=== PATIENT | male | born 1975 | race Two or more races ===

== ENCOUNTER 2024-10-07 07:10 | Emergency (ER) | payer BC, SELFPAY ==
[2024-10-07 07:23] VITALS: BP 118/76; PULSE 61; RESP 19; TEMP 37.6; O2SAT 97; BMI 26.0
--- NOTE | 2024-10-07 07:50 | XR_ITS ---
Examination: Hand, right 3 views Technique: Hand AP, oblique, lateral 3 views Date and time of exam: October 07, 2024, 0816 hrs. Indications: Basketball injury to the hand 2 days ago, hand pain Findings: Acute comminuted fractures involving the base of the first metacarpal with mild displacement of fracture fragments No gerry dislocation Impression: Acute comminuted fracture base proximal phalanx first digit
--- NOTE | 2024-10-07 08:34 | PD.EDHAND ---
Upper Extremity Injury RME/HPI General Chief Complaint: Hand/Wrist Problems Stated Complaint: Right hand swollen, right thumb Time Seen by Provider: 10/07/24 07:19 Source: patient Arrival date/time: 10/07/24 07:10 This is a 49-year-old male who presents to the emergency department with complaints of right thumb right hand pain status post injury. Patient reports that 3 days ago he was playing basketball and a ball hit his right thumb hyperflexing since then he has swelling to right thumb and mid hand. Denies any other injuries no other concerns today. Mode of arrival: ambulatory Limitations: no limitations Related Data Previous Rx's ?Medication ?Instructions ?Recorded hydrocortisone 2.5 % topical cream 1 applic VA QDAY PRN hemorrhoids 09/01/20 with perineal applicator #1 g (Anusol-HC) ibuprofen 800 mg tablet 800 mg PO TID PRN pain #30 tabs 09/21/23 ibuprofen 800 mg tablet (IBU) 800 mg PO Q8H #20 tabs 10/07/24 Allergies Allergy/AdvReac Type Severity Reaction Status Date / Time No Known Allergies Allergy Verified 10/07/24 07:14 Review of Systems Review of Systems Systems Reviewed: All systems reviewed, normal except as documented Narrative Review of Systems: Gen: No fever, no chills, no weight loss EYES: No discharge, no visual changes, no pain HEENT: No ear pain, no congestion, no sore throat PULM: No shortness of breath, no cough, no congestion CV: No chest pain, no dyspnea on exertion, no palpitations GI: No nausea, no vomiting, no diarrhea, no pain, no constipation : No frequency, no urgency, no dysuria Musc/skel: Right hand right thumb pain no back pain Skin: No rash Psyc: No hallucinations, no depression Heme/Lymph: No easy bleeding or bruising tendencies Neuro: No weakness, no headache ED Exam General Limitations: Present no limitations General appearance: Present alert and in no apparent distress Head Head exam: Present atraumatic Eye Eye exam: Present normal appearance, PERRL and EOMI ENT ENT exam: Present normal exam, normal oropharynx and mucous membranes moist Neck Neck exam: Present normal inspection, full ROM and trachea midline Chest Chest inspection: Present normal inspection and symmetric chest wall rise Respiratory Respiratory exam: Present normal lung sounds bilaterally Cardiovascular Cardiovascular exam: Present regular rate, normal rhythm and normal heart sounds Abdominal Exam Abdominal exam: Present soft and normal bowel sounds; Absent distention, tenderness, guarding or rebound Extremities Exam Extremities exam: Present full ROM Expanded Upper Extremity Exam Shoulder exam: Present normal inspection Arm exam: Present normal inspection Elbow exam: Present normal inspection Hand L/R front image:  1. other (+ Right first digit swelling moderate extending to mid hand. Positive pulses. CMS intact) Back Exam Back exam: Present normal inspection and full ROM Neurological Exam Neurological exam: Present alert, oriented X3 and CN II-XII intact Psychiatric Psychiatric exam: Present normal affect and normal mood Skin Skin exam: Present warm, dry, intact and normal color Course Quality Measures none Orders Category Date Time Status Splint / Immobilizer STAT Care 10/07/24 09:49 Completed XR hand comp RT min 3V Stat Exams 10/07/24 07:50 Completed Vital Signs Vital signs: Vital Signs Temperature 99.6 F 10/07/24 07:23 Pulse Rate 61 10/07/24 07:23 Respiratory Rate 19 10/07/24 07:23 Blood Pressure 118/76 10/07/24 07:23 Pulse Oximetry (%) 97 10/07/24 07:23 Oxygen Delivery Method Room Air 10/07/24 07:23 Extremity Injury MDM Narrative MDM Narrative:: The patient presents with an acute injury to the right/left thumb followingsports injury. Imaging confirms a comminuted fracture at the base of the proximal phalanx of the first digit. It is imperative that the patient follows up with PCP on Wednesday for urgent referral orthopedic/hand surgeon. Patient is aware and agrees with plan. Patient is placed in a thumb spica splint sling provided analgesia sent to pharmacy. Strict precautions given to return to emergency department for any worsening symptoms change in condition Patient data External records reviewed:: [facility] previous records Clinical information provided by:: patient Social determinants that could affect healthcare access:: none Patient has the following chronic illnesses:: None How is presenting disease/condition affected by chronic disease/condition?: no chronic disease Evaluation data The following diagnostics were reviewed and interpreted by me:: radiology exam(s) Lab and/or radiology exams considered but not ordered:: No Interpretation Summary: Examination: Hand, right 3 views Technique: Hand AP, oblique, lateral 3 views Date and time of exam: October 07, 2024, 0816 hrs. Indications: Basketball injury to the hand 2 days ago, hand pain Findings: Acute comminuted fractures involving the base of the first metacarpal with mild displacement of fracture fragments No gerry dislocation Impression: Acute comminuted fracture base proximal phalanx first digit Medications / Prescriptions Medications or Prescriptions considered but not ordered:: Pain medication Medication administrations:: No Consultations Consultation(s) initiated? (list below): No Diagnosis Upper Extremity Injury Differential Diagnosis: sprain and strain of wrist, fracture of wrist, finger sprain, dislocation of finger and fracture of hand Most likely diagnosis given after review of the tests above:: Possible sprain strain right thumb Admission Indicated Admission indicated?: not indicated Admission Request Was there a request for admission?: No Disposition Plan Disposition Plan: Discharge Discharge Attestation Discharge Attestation: The patient and all family members were given an opportunity to ask questions and understood the discharge instructions. Discharge instructions specifically effects, indications for sooner follow up or return to the emergency department, and the expected course of current diagnosis. Patient condition: Stable Discharge Plan Plan Patient Disposition: HOME (Self Care) Patient condition on transfer: Stable Prescriptions/Referrals Prescriptions/Med Rec: New ibuprofen [IBU] 800 mg tablet 800 mg PO Q8H Qty: 20 0RF No Action hydrocortisone [Anusol-HC] 2.5 % cream with perineal applicator 1 applic VA QDAY PRN (Reason: hemorrhoids) Qty: 1 0RF ibuprofen 800 mg tablet 800 mg PO TID PRN (Reason: pain) Qty: 30 0RF Referrals: No Primary/Family,Physician [Primary Care Provider] - In 1 week Problem List Clinical Impression: Fracture of phalanx of digit of hand Patient/Caregiver Discharge Instructions Discharge Activity: activity as tolerated Education Materials: ED Fracture, Finger, Closed Additional Instructions: You do have a fracture to your right thumb. Please wear the splint until you are evaluated by orthopedics. You will need a orthopedic referral. Keep arm elevated to decrease swelling. Return to the emergency department for any worsening symptoms and condition. Print Language: Portuguese Stand Alone Forms: Luz Award Info., Patient Portal Info Letter PA/SPORTS SPECIALIST Supervising Physician PA/SPORTS SPECIALIST Supervising Physician: Dr rosario
== END 2024-10-07 09:57 | disposition home or self-care (01) ==
PROVIDERS: Emergency Provider Family Medicine
DX: S62.511A Displaced fracture of proximal phalanx of right thumb, initial encounter for closed fracture (principal); X50.1XXA Overexertion from prolonged static or awkward postures, initial encounter; Y93.67 Activity, basketball
CPT/HCPCS: 29125; 73130; 99283